=== PATIENT | female | born 1985 | race American Indian/Alaskan Native ===

== ENCOUNTER 2017-12-20 12:10 | Emergency (ER) | payer SELFPAY ==
[2017-12-20 12:27] VITALS: BP 108/63
[2017-12-20 14:07] LABS: HCG Qualitative,Urine Negative (Negative)
[2017-12-20 14:11] LABS: Bacteria,Urine 1+ /HPF (Negative); Bilirubin,Urine NEG (Negative); Blood,Urine NEG (Negative); Color,Urine Yellow (Yellow); Mucus,Urine FEW /HPF; Protein,Urine <15 mg/dL mg/dL (Negative)
== END 2017-12-20 13:45 | disposition left against medical advice (07) ==
LOC: ED 12:10
DX: R10.9 Unspecified abdominal pain (principal); R11.0 Nausea; Z53.21 Procedure and treatment not carried out due to patient leaving prior to being seen by health care provider
CPT/HCPCS: 81001; 81025